=== PATIENT | female | born 1985 | race Caucasian/White ===

== ENCOUNTER → 2018-03-05 21:45 | Outpatient (CLI) | END | disposition home or self-care (01) ==

== ENCOUNTER 2018-03-07 00:20 | Inpatient (IN) | END 2018-03-08 15:49 | disposition home or self-care (01) | DRG 781 ==

== ENCOUNTER 2018-03-11 16:15 | Outpatient (CLI) | END 2018-03-11 21:57 | disposition home or self-care (01) ==

== ENCOUNTER 2018-03-19 21:30 | Inpatient (IN) | END 2018-03-27 16:00 | disposition home or self-care (01) | DRG 766 ==